=== PATIENT | female | born 1960 | race Caucasian/White ===

== ENCOUNTER 2021-10-31 21:02 | Emergency (ER) | payer OTHER ==
[~2021-10-31] VITALS: Ht 162.6 cm; Wt 88.0 kg
[2021-10-31 23:31] LABS: BASOPHILS % 0.6 % (0.0-2.0); EOSINOPHILS % 2.2 % (0.0-5.0); HEMATOCRIT. 34.1 % (36.0-48.0); HEMOGLOBIN. 11.2 g/dL (12.0-16.0); LYMPHOCYTES % 22.8 % (20.0-50.0); MEAN CORPUSCULAR HEMOGLOBIN 25.8 pg (28.0-32.0); MEAN CORPUSCULAR VOLUME 78.7 fL (81.0-99.0); MEAN PLATELET VOLUME 8.5 fl (7.4-10.4); NEUTROPHILS % 68.4 % (40.0-76.0); PLATELET 269 x1000/uL (130-400); RED BLOOD CELL COUNT 4.33 mill/uL (4.2-5.4); RED CELL DISTRIBUTION WIDTH 15.8 % (11.6-14.6)
[2021-10-31 23:39] LABS: CHLORIDE 107 mEq/L (98-107)
[2021-11-01 05:00] VITALS: BP 134/74
== END 2021-11-01 05:00 | disposition home or self-care (01) ==
LOC: ER 21:02
DX: R07.89 Other chest pain (principal); R00.2 Palpitations; E11.9 Type 2 diabetes mellitus without complications; I10 Essential (primary) hypertension
CPT/HCPCS: 36415; 71045; 80053; 83880; 84484; 85025; 93005; 99285